=== PATIENT | male | born 1990 | race Caucasian/White ===

== ENCOUNTER 2017-08-21 19:05 | Inpatient (IN) | payer BC, OTHER ==
[~2017-08-21] VITALS: Ht 193 cm; Wt 70.0 kg
[2017-08-21 20:32] LABS: HEMATOCRIT 42.6 % (42-52); HEMOGLOBIN 15.4 g/dL (14.0-18.0); MEAN CELL VOLUME 87.5 fL (80-100); MEAN CORPUSCULAR HEMOGLOBIN 31.6 pg (25-34); MEAN CORPUSCULAR HGB CONC 36.2 g/dl (32-36); MEAN PLATELET VOLUME 10.6 fL (7.4-10.4); PLATELET COUNT 321 K/uL (130-400); RED CELL DISTRIBUTION WIDTH CV 12.6 % (11.5-14.5); RED CELL DISTRIBUTION WIDTH SD 40.6 fL (36.4-46.3); WHITE BLOOD COUNT 12.92 K/uL (4.8-10.8)
[2017-08-21 20:54] LABS: ALBUMIN 4.2 gm/dl (3.4-5.0); CALCIUM 9.1 mg/dl (8.5-10.1); CREATININE 0.79 mg/dl (0.60-1.40); POTASSIUM 3.6 mmol/L (3.5-5.1)
[2017-08-21 21:05] LABS: TOTAL PROTEIN 7.6 gm/dl (6.4-8.2)
[2017-08-21] MEDS ORDERED: NURSING VERBAL MED ORDER ONE (22:45)
[2017-08-21 22:54] VITALS: O2SAT 98
[2017-08-21] MEDS ORDERED: RISPERIDONE 1 MG TAB PO STA (23:11)
[2017-08-21] MEDS ORDERED: BISMUTH SUBSALICYLATE PER ML OMNICELL CHARGE PO PRN (23:15)
[2017-08-21] MEDS ORDERED: ACETAMINOPHEN 325 MG TAB PO PRN (23:15)
[2017-08-21] MEDS ORDERED: MAGNESIUM HYDROXIDE SUSP 30 ML UDC PO PRN (23:15)
[2017-08-21] MEDS ORDERED: SODIUM CHLORIDE 0.65% NA SOLN 45 ML (OCEAN) PRN (23:15)
[2017-08-21] MEDS ORDERED: ALUMINUM/MAGNESIUM SUSP 30 ML UDC PO PRN (23:15)
[2017-08-21] MEDS ORDERED: hydrOXYzine HCL 25 MG TAB PO PRN (23:15)
--- NOTE | 2017-08-21 23:33 | EMERGENCY ROOM VISIT NOTE ---
History Report prepared by Amira: Ivon Britt Under the Supervision of: Dr. Michael Telelz M.D. First contact with patient: 19:24 Chief Complaint: MENTAL HEALTH EVALUATION Stated Complaint: PSYCH DISTRESS, FEELS LIKE OUT OF REALITY History of Present Illness The patient is a 26 year old male who presents to the Emergency Room with complaints of an episodic panic attack 20 minutes [employer]. He was recently shopping at [employer] when he began experiencing an out of body sensation. He states that he felt dizzy. He reports that being in public is overwhelming. He has a history of anxiety and depression. He denies feeling this way with his anxiety in the past. He denies any cough or fevers. He denies any recent illness. He notes numbness in his hands, though is unsure when it began. Per mother, the patient has a possible history of Raynaud's disease, though the patient has refused to undergo the necessary testing to determine a proper diagnosis. He feels like the world is crumbling around him and that he does not belong in this world. He reports having apocalyptic dreams and dreams where he is chased by the police. He reports that he recently received two speeding tickets in the last month, though denies any history of arrest. He last had suicidal thoughts three days ago, though denies any history of harming himself. He denies any thoughts of harming others. He denies hearing any voices, though he states that he hears sounds that he does not expect to hear. He does not know how to explain the sounds he hears. He denies seeing things that other people don't see. Per mother, the patient was seen by a psychiatrist in 2013 for psychosis and diagnosed with thought disorder. The patient has been prescribed a medication that normally treats bipolar disorder, though the mother explained that the patient has not been diagnosed with bipolar disorder. Per mother, the patient is also on Neurontin for peripheral neuropathy. The patient is not currently taking any blood thinners. She explained that the patient does not like to take his medications to reach a therapeutic level and normally quits taking medication after a week of use. Source of History: patient, parent Onset: 20 minutes [employer] Position: other (global ) Quality: other (panic attack) Timing: other (episodic) Associated Symptoms: + numbness (in both hands), No fevers, No cough Note: He notes an out of body sensation. He denies any recent illness. He denies any thoughts of harming others. He denies hearing any voices. He notes hearing sounds. Review of Systems See HPI for pertinent positives & negatives. A total of 10 systems reviewed and were otherwise negative. Past Medical & Surgical Medical Problems: (1) Anxiety (2) Anxiety (3) Depression (4) Insomnia (5) Psychosis (6) Thought disorder Family History No pertinent family history Social History Smoking Status: Never Smoker Smokeless Tobacco Use: No Alcohol Use: occasionally (2 beers per month) Drug Use: none Marital Status: single Housing Status: lives with family Occupation Status: unemployed Current/Historical Medications Miscellaneous Medications None (Patient States No Home Meds) Allergies Coded Allergies: No Known Allergies (Unverified , 05/06/11) Physical Exam Vital Signs Date Time Temp Pulse Resp B/P (MAP) Pulse Ox O2 Delivery O2 Flow Rate FiO2 08/21/17 19:17 116 20 134/78 99 Room Air Physical Exam Constitutional: Vital signs reviewed. Eyes: Pupils are equal round reactive to light. Conjunctiva are noninjected. ENT: Pharynx is clear without erythema or exudate. Mucous membranes are moist. Neck supple without meningeal signs. Respiratory: Clear to auscultation bilaterally. Breath sounds are equal bilaterally. Cardiovascular: Regular rate and rhythm. No rubs or gallops. GI: Soft, nondistended and nontender. Bowel sounds are present. Musculoskeletal: No peripheral edema. No lower extremity tenderness. No discoloration to hands. Normal pulses. Integumentary: No cyanosis. Neurological: The patient is awake and alert. No focal deficits. Psychiatric: Depressed, flattened affect. Medical Decision & Procedures Laboratory Results 08/21/17 20:21 08/21/17 20:21 Test 08/21/17 19:30 08/21/17 20:21 Urine Color YELLOW Urine Appearance CLEAR (CLEAR) Urine pH 5.5 (4.5-7.5) Urine Specific [place] 1.012 (1.000-1.030) Urine Protein NEG (NEG) Urine Glucose (UA) NEG (NEG) Urine Ketones NEG (NEG) Urine Occult Blood NEG (NEG) Urine Nitrite NEG (NEG) Urine Bilirubin NEG (NEG) Urine Urobilinogen NEG (NEG) Urine Leukocyte Esterase NEG (NEG) Urine Opiates Screen NEG (NEG) Urine Methadone, Qualitative NEG (NEG) Urine Barbiturates NEG (NEG) Urine Phencyclidine (PCP) Level NEG (NEG) Ur Amphetamine/Methamphetamine NEG (NEG) MDMA (Ecstasy) Screen NEG (NEG) Urine Benzodiazepines Screen NEG (NEG) Urine Cocaine Metabolite NEG (NEG) Urine Marijuana (THC) NEG (NEG) Red Blood Count 4.87 M/uL (4.7-6.1) Mean Corpuscular Volume 87.5 fL (80-100) Mean Corpuscular Hemoglobin 31.6 pg (25-34) Mean Corpuscular Hemoglobin Concent 36.2 g/dl (32-36) RDW Standard Deviation 40.6 fL (36.4-46.3) RDW Coefficient of Variation 12.6 % (11.5-14.5) Mean Platelet Volume 10.6 fL (7.4-10.4) Anion Gap 8.0 mmol/L (3-11) Est Creatinine Clear Calc Drug Dose 142.8 ml/min Estimated GFR () 145.7 Estimated GFR (Non- 125.7 BUN/Creatinine Ratio 17.5 (10-20) Calcium Level 9.1 mg/dl (8.5-10.1) Total Bilirubin 0.4 mg/dl (0.2-1) Direct Bilirubin 0.1 mg/dl (0-0.2) Aspartate Amino Transf (AST/SGOT) 11 U/L (15-37) Alanine Aminotransferase (ALT/SGPT) 25 U/L (12-78) Alkaline Phosphatase 84 U/L (45-117) Total Protein 7.6 gm/dl (6.4-8.2) Albumin 4.2 gm/dl (3.4-5.0) Thyroid Stimulating Hormone (TSH) 0.861 uIu/ml (0.300-4.500) Salicylates Level < 1.7 mg/dl (2.8-20) Acetaminophen Level < 2 ug/ml (10-30) Ethyl Alcohol mg/dL < 3.0 mg/dl (0-3) Laboratory results as reviewed by me. ED Course 1927: The patient was evaluated in room A7. A complete history and physical exam was performed. 2219: The patient was accepted to [facility]. Medical Decision This is a 26-year-old male who presents for mental health evaluation. I did perform a limited focused review of portions of the patient's old chart on the electronic medical record. The patient has had no recent pertinent visits to this hospital. I did evaluate the patient as noted above. I did obtain history from the patient as well as his mother. The patient has a history of mental illness with severe depression and has suicidal thoughts recently. He is mostly noncompliant with his medication regimens. He has no physical complaints other than feeling lightheaded and having some discoloration and tingling to his hands. He does have a history of neuropathy and Raynaud's syndrome. His physical examination is unremarkable other than his affect. I did order and review the patient's blood work as noted in the electronic medical record. I did medically clear the patient. The patient was evaluated by 3 S. and admitted to the behavioral unit for inpatient psychiatric care. Medication Reconcilliation Current Medication List: was personally reviewed by me Blood Pressure Screening Patient's blood pressure: Elevated blood pressure Blood pressure disposition: Referred to PCP Impression Primary Impression: Suicidal ideation Additional Impression: Mood disorder Scribe Attestation The scribe's documentation has been prepared under my direct and personally reviewed by me in its entirety. I confirm that the note above accurately reflects all work, treatment, procedures, and medical decision making performed by me. Departure Information Dispostion Mental Health Acute Care ([facility]) Referrals No Doctor, Assigned (PCP) Patient Instructions [facility] Problem Qualifiers
[2017-08-21] MEDS: hydrOXYzine HCL 25 MG TAB PO PRN (23:37)
[2017-08-21 23:42] VITALS: BP 106/60; PULSE 91; TEMP 37; Ht 193 cm; Wt 70.0 kg
[2017-08-22] MEDS ORDERED: INFLUENZA ADMINISTRATION CHARGE ONE (00:30)
[2017-08-22] MEDS ORDERED: INFLUENZA VIRUS QUAD VACCINE 0.5 ML SYR IM. ONE (00:30)
[2017-08-22 06:46] VITALS: BP_SYST 116; BP_SYST 92; BP_DIAS 53; BP_DIAS 79; PULSE 68; PULSE 70; TEMP 36.3
[2017-08-22] MEDS: RISPERIDONE 1 MG TAB PO SCH ×2 (09:57→21:28)
--- NOTE | 2017-08-22 10:06 | Psych Management Progress Note ---
Psychiatry Miscellaneous Date of Service: Aug 22, 2017. Patient seen, MS assessed. Patient unable to rate mood at this time. Tall and quite thin, disheveled. He is thirsty and denied questions. I personally participated in the medical decision making outlined in the H&P by FRANCOIS Manjarrez and agree with the findings and plan.
[2017-08-22] MEDS ORDERED: ESCITALOPRAM OXALATE 10 MG TAB PO ONE (11:01)
--- NOTE | 2017-08-22 11:01 | Psychiatric History & Physical ---
History Date of Service Aug 22, 2017. Identifying Data iHram Owusu is a 26-year-old male admitted voluntarily on Aug 21, 2017 at 22:34 who presented to the emergency department after having a panic attack. He admits to suicidal thinking and severe depression. Information is gathered from the patient, the electronic medical record, and considered to be reliable. Chief Complaint "I had a panic attack, nervous breakdown yesterday.". History of Present Illness The patient is a 26-year-old gentleman whose past psych history includes a [place] in 2013 during a time when he had been abusing psychedelic drugs and got psychotic. He has not recently been in psychiatric treatment although indicates he may have seen Eric Lafleur for therapy some 6 months ago. He admits to feeling depressed for the last 1-2 years. He reports chronic anxiety in crowds and feeling like he can't operate in society. 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 Unfortunately he has been unable to find a job and in that setting, his mood has deteriorated. He now describes himself as "hermit like", living in his parents basement, never going out. He reports that he has dreams about the police being out to get him and he indeed did have 2 speeding tickets recently. Yesterday, apparently he had a panic attack after being out at [employer] shopping. He felt like he was having a "out of body experience, not really part of the scene, and decided to come to the emergency department. In trying to understand the mental illness that had him hospitalized in 2013, he says he described feeling "spaced out" secondary to the drugs, not reality based or rational, but he could not remember any specific examples of psychotic thinking or behaviors. Today he is clearly depressed, with some psychomotor retardation. He admits to passive suicidal thinking, saying that he believes he will just in his parents. He says that he sleeps at night but never feels rested during the day and reports very low energy. His appetite is low, he's lost an unspecified amount of weight with current BMI 18.8. He describes his anxiety as "slightly medium", worrying about his ability to function. He denies clear auditory or visual hallucinations but does describe some visual illusions, for example looking at something and initially misinterpreting it but looking at it a second time as it is really. He reports seeing clocks with repetitive numbers occasionally. He denies clear auditory experiences other than to say he has at least once her body describes as "whispers". He has no problems with anger currently but says when he was a little kid he did have problems with anger. He denies any self-injurious behaviors. He denies any specifically eating disordered behaviors but does say that he doesn't get the signal to his brain that he should eat. He denies any discrete episodes of euphoric mood, sleeplessness or pleasure seeking behaviors that would be congruent with a bipolar disorder. Past Psychiatric History Current OP Treatment: no current treatment Prior OP Treatment: therapist (Eric Lafleur) Prior Psych Hospitalizations: none (a farm in [place] in 2013) Access to a Gun: No Suicide Attempts: No Past Medication Trials Prozac-zombie, possibly a bipolar medication Past Medical/Surgical History History of Concussion/Seizure: No (1) none Allergies Allergies: Coded Allergies: No Known Allergies (Unverified , 05/06/11) Home Medications Miscellaneous Medications None (Patient States No Home Meds) Family History No pertinent family history History of Suicide: No History of Substance Abuse: Yes (mother is a recovering alcoholic) Psychiatric History: Yes (mother with anxiety) Alcohol Use Alcohol Use In Past 12 Months: No AUDIT Total Score: 0 Smoking Use Smoking Status: Never Smoker Substance History History of doing marijuana, mushrooms, LSD up to 2013, denies any current use. Did have an underage drinking charge Personal History [place] Childhood: Raised by both parents. Currently lives with them. He has 3 sisters, 1 brother , and is the third oldest. He is currently unemployed for the last 6-8 months. 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, emergency department physician, dessert maker Relationship History: never Children: none Legal History: none Psychological Trauma History: Other (watching her mother during her alcoholic days was traumatic for him) Review of Systems Constitutional: malaise Eyes: denies: no symptoms, as stated in HPI, eye pain, tearing, itching, redness, discharge, double vision, visual changes, blurred vision, photophobia, other ENT: denies: no symptoms reported, see HPI, ear pain, ear discharge, loss of hearing, tinnitus, nasal pain, nasal congestion, rhinorrhea, epistaxis, sore throat, stidor, throat swelling, mouth pain, mouth swelling, dental pain, gum swelling, other Cardiovascular: denies: no symptoms reported, see HPI, chest pain, chest tightness, chest pressure, diaphoresis, palpitations, syncope, other Respiratory: denies: no symptoms reported, see HPI, cough, orthopnea, short of breath, stridor, wheezing, sputum production, cyanosis, US, PND, other Gastrointestinal: diarrhea (last episode 5-7 days ago) Genitourinary - Male: reports: other (some difficulty initiating his stream) Musculoskeletal: other (pain in legs and hip rated 6-7 out of 10 today) Integumentary: denies no symptoms reported, denies see HPI, denies change in color, denies change in hair/nails, denies dryness, denies lesions, denies lumps , denies rash, denies other Neurologic: denies: no symptoms, see HPI, headache, numbness, paresthesias, pre -existing deficit, seizure, tingling, tremors, general weakness, tics, focal weakness, vertigo, lethargy, memory loss, dizziness, other Endocrine: denies: no symptoms, as stated in HPI, cold intolerance, heat intolerance, hair changes, goiter, polydipsia, polyuria, skin changes, other Hematologic / Lymphatic: denies: no symptoms, as stated in HPI, abnormal clotting, adenopathy, anemia, easy bleeding, easy bruising, gums bleeding, petechiae, other Examination Physical Examination exam performed by Dr. Tellez in the emergency Department has been reviewed and accepted as medical clearance for our unit Vital Signs Vital Signs Past 12 Hours Date Time Temp Pulse Resp B/P (MAP) Pulse Ox O2 Delivery O2 Flow Rate FiO2 08/22/17 06:46 36.3 68 14 92/53 70 116/79 08/21/17 23:42 37.0 91 16 106/60 08/21/17 22:54 87 20 129/74 98 Laboratory Results Last 24 Hours Test 08/21/17 19:30 08/21/17 20:21 Urine Color YELLOW Urine Appearance CLEAR Urine pH 5.5 Urine Specific [place] 1.012 Urine Protein NEG Urine Glucose (UA) NEG Urine Ketones NEG Urine Occult Blood NEG Urine Nitrite NEG Urine Bilirubin NEG Urine Urobilinogen NEG Urine Leukocyte Esterase NEG Urine Opiates Screen NEG Urine Methadone, Qualitative NEG Urine Barbiturates NEG Urine Phencyclidine (PCP) Level NEG Ur Amphetamine/Methamphetamine NEG MDMA (Ecstasy) Screen NEG Urine Benzodiazepines Screen NEG Urine Cocaine Metabolite NEG Urine Marijuana (THC) NEG White Blood Count 12.92 K/uL Red Blood Count 4.87 M/uL Hemoglobin 15.4 g/dL Hematocrit 42.6 % Mean Corpuscular Volume 87.5 fL Mean Corpuscular Hemoglobin 31.6 pg Mean Corpuscular Hemoglobin Concent 36.2 g/dl RDW Standard Deviation 40.6 fL RDW Coefficient of Variation 12.6 % Platelet Count 321 K/uL Mean Platelet Volume 10.6 fL Sodium Level 133 mmol/L Potassium Level 3.6 mmol/L Chloride Level 101 mmol/L Carbon Dioxide Level 24 mmol/L Anion Gap 8.0 mmol/L Blood Urea Nitrogen 14 mg/dl Creatinine 0.79 mg/dl Est Creatinine Clear Calc Drug Dose 142.8 ml/min Estimated GFR () 145.7 Estimated GFR (Non- 125.7 BUN/Creatinine Ratio 17.5 Random Glucose 103 mg/dl Calcium Level 9.1 mg/dl Total Bilirubin 0.4 mg/dl Direct Bilirubin 0.1 mg/dl Aspartate Amino Transf (AST/SGOT) 11 U/L Alanine Aminotransferase (ALT/SGPT) 25 U/L Alkaline Phosphatase 84 U/L Total Protein 7.6 gm/dl Albumin 4.2 gm/dl Thyroid Stimulating Hormone (TSH) 0.861 uIu/ml Salicylates Level < 1.7 mg/dl Acetaminophen Level < 2 ug/ml Ethyl Alcohol mg/dL < 3.0 mg/dl Mental Examination During interview pt is: alert and oriented, cooperative Appearance: disheveled Eye contact is: poor Motor behavior is: psychomotor agitation (restless leg) Speech: normal in rate, rhythm & volume Affect: mood congruent, depressed, flat Mood is: depressed Thought process: goal directed Thought content: reality based without delusions Suicidal thought are: present (passive in nature), Plan: denied, Intent: denied Homicidal thoughts are: denied Hallucinations: denies auditory, denies visual Cognition: attention grossly intact, language grossly intact Intelligence estimated to be: average Insight: impaired Judgement: impaired Impression / Recommendations Impression 26-year-old gentleman admitted voluntarily to our unit with severe depression and anxiety isolation. I do not get a clear sense of paranoia, denying that he is fearful of the police being out to get him. He does admit dreams about the police getting him but denies that he is acting on these in a paranoid state. He is clearly severely depressed with multiple vegetative symptoms. He is not a very good medication historian and can only recall having been on Prozac. At this point we will treat the depression with Lexapro 10 mg daily titrating as tolerated. For now we will continue Risperdal 1 mg twice a day in the event his thoughts are distorted in his depression but can discontinue this if this does not seem to be necessary. He will need assistance to get out of bed, eat 3 meals a day and dislodge himself from his self-imposed isolation. We will need to get supplemental information from his mother, establish psychiatric outpatient care. At this time, the patient requires inpatient mental health treatment due to his clear decompensation, inability to function outside of a structured environment. Inventory Assets Strengths: Willingness to engage in treatment Needs: To identify positive coping strategies Risk Factors Assessment Male: Yes : Yes /single/: Yes Higher / Fall in social status: Yes Access to guns: No Health problems: No Mental Health Diagnoses: Yes Substance use disorders: Yes (history of) Previous attempt: No Previous psychiatric stay: Yes Smoker: No Protective Factors Assessment : No Responsible for young children: No Employed: No Stable relationships: No Supportive family: Yes Recommendations (1) Major depressive disorder, recurrent episode, severe 08/22 - Start Lexapro 10 mg daily titrating as tolerated. Risks, benefits, alternatives reviewed and accepted including black box warning for worsening depression - It is not clear that his thoughts about the police are paranoid. Nonetheless we will continue on Risperdal 1 mg twice a day to help maintain reality based thinking as he did have an out of body experience yesterday but may be able to discontinue this if no clear evidence of psychotic component - The patient will need assistance with ADLs and to remain out of bed - Encourage participation in group and individual counseling - Every 15 minute checks for safety - The patient will need psychiatric aftercare - Obtain supplemental information from family - Obtain records from hospitalization in 2013 - Will order Vit D level in view of having been in the basement for months Dr. Tessa Graf has personally been involved in the review of the above case and the development of these recommendations. CPT Code Initial Hospital Care: [id number]
[2017-08-22] MEDS ORDERED: IBUPROFEN 600 MG TAB PO PRN (11:15)
[2017-08-23 06:56] VITALS: BP_SYST 102; BP_SYST 108; BP_DIAS 66; BP_DIAS 75; PULSE 102; PULSE 84; TEMP 36.5
[2017-08-23] MEDS: ESCITALOPRAM OXALATE 10 MG TAB PO SCH (08:21)
[2017-08-23] MEDS: RISPERIDONE 1 MG TAB PO SCH ×2 (08:21→21:11)
--- NOTE | 2017-08-23 08:50 | Psychiatric Progress Notes ---
Progress Note Date of Service Aug 23, 2017. Interval History Hiram Owusu is a 26-year-old male admitted voluntarily on Aug 21, 2017 at 22:34 who presented to the emergency department after having a panic attack and reporting severe depression and suicidal thoughts. He was started on escitalopram and risperidone here. Chief Complaint "Much better I would say". Subjective Patient was seen & assessed interval progress reviewed with Treatment Team. Staff report the patient submitted a 72 hour notice requesting to withdraw from treatment this morning. He is talking about going [facility] to live with an aunt and take online courses. Staff spoke to his mother who is very worried about him, said he signed out of a treatment facility in [place] and flew somewhere and they had to go and get him. He has been isolating in their basement for the past few months, has not been able to work or care for himself , has not been eating and has lost weight. He has a meeting scheduled with his parents this afternoon. Records reviewed from neuropsychological testing performed at [facility] in [place] in [address] Yariel Molina. The patient was 20 at the time, a second semester communications [employer], and was referred by the [facility] office of disability services for testing for ADHD and eligibility for accommodations. He reported difficulty paying attention, had to force himself to go to classes, and had failed out his first semester as he was not attending classes. He struggled in high school and felt he was unable to learn as quickly as others. His GPA was 1.7, he earned A's and B's in elementary school, and C's and D's in high school. He reported that his mother was an alcoholic, unremarkable developmental history, but problems with defiance and impulsiveness as a child. He had been treated with sertraline by Ragini Cedeno in the past, but said it made him feel "like a zombie." He reported depressive symptoms for 4 years, and was not currently in treatment. He reported anxiety around females, and admitted to abusing alcohol and marijuana. He failed a test indicator of motivation, indicating that he was not putting forth adequate effort during testing. His answers were inconsistent, and there was indication that he may be exaggerating complaints and problems. IQ was 86, and the low average range. His self-description noted peculiar thinking and experience, social isolation with few interpersonal relationships, and limited social skills. His thought process was marked by confusion, distractibility, and slowed her disrupted thinking, but he did not endorse active psychotic symptoms. It appeared that his substance abuse was negatively affecting his life and symptoms, and he described a personality style noted by a marked need for stimulation and excitement, leading to reckless behavior and irresponsibility. He described significant suspiciousness and hostility in his relationships with others, and was quick to believe he is being treated in equitably and holds grudges, causing strain working relationships. The conclusion was that although testing supported a diagnosis of ADHD, inattentive type, and also revealed marked psychological distress characterized by depression, substance abuse, interpersonal difficulties, and deficits in cognitive functioning; however, these findings may be an overestimate of his psychopathology given data indicating symptom exaggeration. He was given provisional diagnoses of ADHD, as well as depression NOS rule out dysthymic disorder, and cannabis abuse. Records from [facility] in [place] in 2013 were also reviewed ( admitted 12/15/2013, discharged 01/26/2014). His psychiatric assessment was performed by Dr. Price Rivera, and noted that he had attempted college at [employer] several times, but had withdrawal. He admitted to regular marijuana use starting in 10th grade, progressing to mushrooms and LSD the following year, and alcohol. He reported depressive symptoms, but denied symptoms of mynor, anxiety, and over hallucinations other than when on hallucinogens. He was diagnosed with cannabis and hallucinogen abuse and rule out schizophreniform disorder he reported that his sister had been labeled as "psychotic." The physician suspected that his inattentiveness was due to underlying psychosis, and included paranoid schizophrenia, schizoaffective disorder, substance- induced psychosis, and schizotypical personality disorder in the differential. He indicated that he was not really interested in treatment, and only went because his parents made him. His parents did not want him to return home. He did not want to take medications. Records indicated that diagnostically, he was a puzzle, although he appeared to have negative symptoms of schizophrenia. He was referred for neuropsychological testing. He had weekly phone sessions with his parents, but was sarcastic, and struggled to identify any treatment goals or make progress. He tended to downplay his symptoms, had poor participation in treatment, and ultimately requested to leave. He showed little insight, and refused medications. He was discharged with a diagnosis of cannabis and hallucinogen abuse, and rule out schizophreniform disorder. Per records, he was transferred to [facility], a residential treatment facility/working community in [place]. There is one note from 04/26/[address] David Guzman, and evaluation as affected probe and in the siblings study. He was reluctant to participate in some aspects of this study. At that time, he had recently been released from [facility], and was living with a maternal aunt and her 2 children in [place], and taking online classes. Due to his ongoing odd thinking that episodically rises past the threshold for psychosis together with negative symptoms and a failure to function, it was recommended that he work with a psychotherapist and abstain from substance use. Today on my assessment, he was seen with DANIEL Palacios. He states he is feeling much better, mood is "better because of the medication, but would be even better if I could exercise more." Rates his mood a 7-8 out of 10, "I feel dairy helper." He says he is going to groups and slept well. Appetite "pretty stable, " but admits not eating, "my stomach doesn't send me signals, probably a genetic thing, but I'll eat because I have to." He denies side effects to his medications. He has been trying to "be social, explain my emotions to other people," which he says is difficult for him as he is "not really an emotional person." He denies SI, saying he "just didn't want to be alive, I didn't attempt anything." He is hopeful that he will be accepted to an online college he applied to, and says this is "why I was gonna try to scurry out of here." He admits to ongoing auditory hallucinations, saying he "hears things and interprets them...I don't know how to explain it." He hears "sounds" and isn't sure if they are voices, but "I just interpret them differently than what's actually happening." He gives the example of a wheelchair rolling down the hallway, and thinking it was two dogs. He is not sure if he will continue to live with parents here or will move out to [place] where the college he applied to is. When asked about submitting his 72 hour notice, he appears confused, saying he thinks he would do better with "individualized one on one treatment," then saying he thinks he needs to stay for 5 or 6 more days. We reviewed the goals of treatment here, and things that he can do to work towards discharge, including taking care of his ADLs daily, talking with his parents about ways to be successful when he returns home, arranging aftercare, and working on coping skills and a safety plan. He admits he has not showered or put on clean clothes since admission 2 days ago, and says because he doesn't know where the shower is. Sleep Information Total Hours of Sleep: 6.75 Meal Information Percent of Breakfast Consumed: 100 Percent of Lunch Consumed: 90 Percent of Dinner Consumed: 100 Mental Status Exam During interview pt is: alert and oriented, guarded Appearance: disheveled, other (thin, unkempt, unshaven, limited hygiene and grooming) Eye contact is: poor Motor behavior is: no abnormal motor movements Speech: normal in rate, rhythm & volume (minimal, monotone) Affect: depressed, flat, other (incongruent with stated mood) Mood is: other ("better") Thought process: goal directed (illogical at times, contradictory statements) Thought content: reality based without delusions Suicidal thought are: denied, Plan: denied, Intent: denied Homicidal thoughts are: denied Hallucinations: auditory (reports hearing sounds that may represent hallucinations versus unusual processing of auditory cues), denies visual Cognition: attention grossly intact, language grossly intact Intelligence estimated to be: below average Insight: impaired Judgement: impaired Medication Trials Sertraline for depression in high school - "like a zombie" Impression 26-year-old gentleman admitted voluntarily to our unit with severe depression and anxiety isolation. I do not get a clear sense of paranoia, denying that he is fearful of the police being out to get him. He does admit dreams about the police getting him but denies that he is acting on these in a paranoid state. He is clearly severely depressed with multiple vegetative symptoms. He is not a very good medication historian and can only recall having been on Prozac. At this point we will treat the depression with Lexapro 10 mg daily titrating as tolerated. For now we will continue Risperdal 1 mg twice a day in the event his thoughts are distorted in his depression but can discontinue this if this does not seem to be necessary. He will need assistance to get out of bed, eat 3 meals a day and dislodge himself from his self-imposed isolation. We will need to get supplemental information from his mother, establish psychiatric outpatient care. At this time, the patient requires inpatient mental health treatment due to his clear decompensation, inability to function outside of a structured environment. Plan (1) Major depressive disorder, recurrent episode, severe 08/22 - Start Lexapro 10 mg daily titrating as tolerated. Risks, benefits, alternatives reviewed and accepted including black box warning for worsening depression - It is not clear that his thoughts about the police are paranoid. Nonetheless we will continue on Risperdal 1 mg twice a day to help maintain reality based thinking as he did have an out of body experience yesterday but may be able to discontinue this if no clear evidence of psychotic component - The patient will need assistance with ADLs and to remain out of bed - Encourage participation in group and individual counseling - Every 15 minute checks for safety - The patient will need psychiatric aftercare - Obtain supplemental information from family - Obtain records from hospitalization in 2013 - Will order Vit D level in view of having been in the basement for months 08/23 - Records reviewed from past neuropsychological testing and inpatient treatment in [place] in 2013, where he was given diagnoses of cannabis and hallucinogen abuse, and rule out schizophreniform disorder. His history is complex and his symptoms and diagnosis remain unclear. - Continue escitalopram 10 mg daily and risperidone 1 mg twice a day. - Fasting labs obtained today for baseline on an atypical antipsychotic-all values within normal limits - Family meeting with parents this afternoon. Patient has submitted a 72 hour notice requesting to withdraw from treatment, and we spent some time today discussing treatment recommendations, and that I do not feel he is ready for discharge yet, that we would like to continue to adjust his medications, involve his family, work on healthy coping skills and discharge safety plan, and referred him for outpatient care prior to considering discharge. - Vitamin D low at 22.2, will start vitamin D supplementation, and he will need to follow-up with his PCP. Discharge / Aftercare Planning Primary Care Physician: Name: Dr Lou Therapist: Name: None Ground Crew Chief: Name: None Visit Code E&M Code: 59311 Inventory Assets Strengths: Willingness to engage in treatment Needs: To identify positive coping strategies Risk Factors Assessment Male: Yes : Yes /single/: Yes Higher / Fall in social status: Yes Health problems: No Mental Health Diagnoses: Yes Substance use disorders: Yes (history of) Previous attempt: No Previous psychiatric stay: Yes Smoker: No Protective Factors Assessment : No Responsible for young children: No Employed: No Stable relationships: No Supportive family: Yes Data Vital Signs Last 24 Hrs: Date Time Temp Pulse Resp B/P (MAP) Pulse Ox O2 Delivery O2 Flow Rate FiO2 08/23/17 06:56 36.5 84 16 102/66 102 108/75 Meds Administered Last 24 Hrs: Meds Administered (Past 24Hrs) Medications (Trade) Dose Ordered Sig/Giovanni Route Start Time Stop Time Status Last Admin Dose Admin Risperidone (Risperdal Tab) 1 mg BID PO 08/22/17 09:00 09/21/17 08:59 08/22/17 21:28 1 MG Risperidone (Risperdal Tab) 1 mg NOW STAT PO 08/21/17 23:11 08/21/17 23:12 DC 08/21/17 23:38 1 MG Hydroxyzine HCl (Vistaril Tab) 50 mg HSZ PRN PO 08/21/17 23:15 09/20/17 23:14 08/21/17 23:37 50 MG Escitalopram Oxalate (Lexapro Tab) 10 mg 1101 ONCE PO 08/22/17 11:01 08/22/17 11:24 DC 08/22/17 11:34 10 MG Lab Results Last 24 Hrs: Last 24 Hours Test 08/23/17 07:20 Fasting Glucose 92 mg/dl Triglycerides Level 87 mg/dl Cholesterol Level 160 mg/dl HDL Cholesterol 59 mg/dl LDL Cholesterol, Calculated 84 mg/dl VLDL Cholesterol, Calculated 17 mg/dl Cholesterol/HDL Ratio 2.7 25-Hydroxy Vitamin D Total 22.2 ng/ml Problem Qualifiers (1) Major depressive disorder, recurrent episode, severe: Psychotic features: with psychotic features Qualified Codes: F33.3 - Major depressive disorder, recurrent, severe with psychotic symptoms
[2017-08-24 06:50] VITALS: BP_SYST 104; BP_SYST 116; BP_DIAS 70; BP_DIAS 76; PULSE 66; PULSE 96; TEMP 36.5
[2017-08-24] MEDS: ESCITALOPRAM OXALATE 10 MG TAB PO SCH (09:19)
[2017-08-24] MEDS: CHOLECALCIFEROL 400 INTER.UNIT TAB PO SCH (09:19)
[2017-08-24] MEDS: RISPERIDONE 1 MG TAB PO SCH ×2 (09:19→21:20)
--- NOTE | 2017-08-24 11:15 | Psychiatric Progress Notes ---
Progress Note Date of Service Aug 24, 2017. Interval History Hiram Owusu is a 26-year-old male admitted voluntarily on Aug 21, 2017 at 22:34 who presented to the emergency department after having a panic attack and reporting severe depression and suicidal thoughts. He was started on escitalopram and risperidone here. Chief Complaint "Much better". Subjective Patient was seen & assessed interval progress reviewed with Nursing. Staff reports minimal participation in daily programming. Pt had meeting with parents yesterday and staff reports patient was angry but did agree to aftercare. Pt was seen today to assess progress since admission. Pt states he feels he is doing better. Reports he feels "mentally alert and in better overall health". Pt states he feels as though medications have been helpful for him. He does report ongoing fatigue and mild nausea in the mornings, but is unsure if that is related to the medications. Pt states he has never had much of an appetite, but has been eating well here on the unit. He reports decreased eating at home as it requires more work to shop for and prepare meals. Pt states the meeting with his parents went well yesterday and he agreed to outpatient care after discharge. Pt denies SI and self-harm urges at this encounter. He does report, "sometimes I feel a bit paranoid, but I also have a habit of interpreting things wrong." Pt signed a 72-hour notice on 08/23 at 0845. Review of Systems Psych: denies symptoms other than stated above Constitutional: denied Cardiovascular: denied GI: denies nausea so far this morning Neurologic: denied Remainder of 10 body systems also reviewed and denied other than noted above. Sleep Information Total Hours of Sleep: 3.50 Meal Information Percent of Breakfast Consumed: 70 Percent of Lunch Consumed: 100 Percent of Dinner Consumed: 100 Mental Status Exam During interview pt is: alert and oriented, guarded Appearance: appropriately dressed, disheveled (unkempt, minimal grooming), other (rather thin) Eye contact is: fair Motor behavior is: steady gait & station, no abnormal motor movements Speech: normal in rate, rhythm & volume Affect: flat, other (incongruent with reported mood) Mood is: other ("much better") Thought process: goal directed (illogical at times, contradictory statements) Thought content: reality based without delusions Suicidal thought are: denied, Plan: denied, Intent: denied Homicidal thoughts are: denied Hallucinations: auditory ("nothing significant", states he can "misintrepret things"), denies visual Cognition: memory grossly intact, attention grossly intact, language grossly intact Intelligence estimated to be: below average Insight: impaired Judgement: impaired Medication Trials Sertraline for depression in high school - "like a zombie Impression Pt reports improvement in mood symptoms but remains flat and incongruent to stated mood. Pt reports being mentally alert on Lexapro 10mg and Risperdal 1mg BID. Ongoing fatigue, but denies side effects otherwise. pan tank worker was able to reach patient's mother and discuss signed 72-hour notice with her as patient likely does not meet criteria for a 302 commitment. Pt has been going to group programming, but participates minimally. Patient requires inpatient mental health treatment due to decompensation and inability to function outside of a structured environment. Plan (1) Major depressive disorder, recurrent episode, severe 08/22 - Start Lexapro 10 mg daily titrating as tolerated. Risks, benefits, alternatives reviewed and accepted including black box warning for worsening depression - It is not clear that his thoughts about the police are paranoid. Nonetheless we will continue on Risperdal 1 mg twice a day to help maintain reality based thinking as he did have an out of body experience yesterday but may be able to discontinue this if no clear evidence of psychotic component - The patient will need assistance with ADLs and to remain out of bed - Encourage participation in group and individual counseling - Every 15 minute checks for safety - The patient will need psychiatric aftercare - Obtain supplemental information from family - Obtain records from hospitalization in 2013 - Will order Vit D level in view of having been in the basement for months 08/23 - Records reviewed from past neuropsychological testing and inpatient treatment in [place] in 2013, where he was given diagnoses of cannabis and hallucinogen abuse, and rule out schizophreniform disorder. His history is complex and his symptoms and diagnosis remain unclear. - Continue escitalopram 10 mg daily and risperidone 1 mg twice a day. - Fasting labs obtained today for baseline on an atypical antipsychotic-all values within normal limits - Family meeting with parents this afternoon. Patient has submitted a 72 hour notice requesting to withdraw from treatment, and we spent some time today discussing treatment recommendations, and that I do not feel he is ready for discharge yet, that we would like to continue to adjust his medications, involve his family, work on healthy coping skills and discharge safety plan, and referred him for outpatient care prior to considering discharge. - Vitamin D low at 22.2, will start vitamin D supplementation, and he will need to follow-up with his PCP. 08/24 - Continue Lexapro 10mg and Risperdal 1mg BID. - Discussed with patient option to rescind his 72-hour notice, which he understood. Unsure if he will do this later today after additional consideration. - pan tank worker spoke with patient's mother over the phone to gain collateral information. Inability to 302 based on lacking appropriate criteria was discussed and mother reportedly understood. Will use remaining hospitalization to attempt provide additional outpatient supports and explore options for case management, psych rehab, etc. - Continue to encourage participation in group programming and disrupt isolative behaviors. Discharge / Aftercare Planning Primary Care Physician: Name: Dr Lou Therapist: Name: None [employer] Consultant: Name: None Visit Code E&M Code: 97447 Inventory Assets Strengths: Willingness to engage in treatment Needs: To identify positive coping strategies Risk Factors Assessment Male: Yes : Yes /single/: Yes Higher / Fall in social status: Yes Health problems: No Mental Health Diagnoses: Yes Substance use disorders: Yes (history of) Previous attempt: No Previous psychiatric stay: Yes Smoker: No Protective Factors Assessment : No Responsible for young children: No Employed: No Stable relationships: No Supportive family: Yes Data Vital Signs Last 24 Hrs: Date Time Temp Pulse Resp B/P (MAP) Pulse Ox O2 Delivery O2 Flow Rate FiO2 08/24/17 06:50 36.5 66 16 104/70 96 116/76 Meds Administered Last 24 Hrs: Meds Administered (Past 24Hrs) Medications (Trade) Dose Ordered Sig/Giovanni Route Start Time Stop Time Status Last Admin Dose Admin Escitalopram Oxalate (Lexapro Tab) 10 mg QAM PO 08/23/17 09:00 09/22/17 08:59 08/24/17 09:19 10 MG Escitalopram Oxalate (Lexapro Tab) 10 mg 1101 ONCE PO 08/22/17 11:01 08/22/17 11:24 DC 08/22/17 11:34 10 MG Cholecalciferol (Vitamin D Tab) 800 inter.unit QAM PO 08/24/17 09:00 09/23/17 08:59 08/24/17 09:19 800 INTER.UNIT Problem Qualifiers (1) Major depressive disorder, recurrent episode, severe: Psychotic features: with psychotic features Qualified Codes: F33.3 - Major depressive disorder, recurrent, severe with psychotic symptoms
[2017-08-24] MEDS: hydrOXYzine HCL 25 MG TAB PO PRN (21:20)
[2017-08-25 07:07] VITALS: BP_SYST 110; BP_SYST 125; BP_DIAS 71; BP_DIAS 79; PULSE 79; PULSE 85; TEMP 36.4
[2017-08-25] MEDS: ESCITALOPRAM OXALATE 10 MG TAB PO SCH (07:42)
[2017-08-25] MEDS: RISPERIDONE 1 MG TAB PO SCH (07:43)
[2017-08-25] MEDS: CHOLECALCIFEROL 400 INTER.UNIT TAB PO SCH (07:43)
[2017-08-25] MEDS ORDERED: VTMD400 PO (10:15)
[2017-08-25] MEDS ORDERED: ATR25 PO (10:15)
[2017-08-25] MEDS ORDERED: RSP1 PO (10:15)
[2017-08-25] MEDS ORDERED: LXP10 PO (10:15)
--- NOTE | 2017-08-25 10:42 | Discharge Instructions ---
Discharge Information Report Includes Report will include the: Discharge Instructions & Summary Admission Admission Date / Time: Aug 21, 2017 at 22:34 Reason for Admission: Psychosis Nos Discharge Discharge Diagnosis / Problem: major depression, psychosis not otherwise specified Condition at Discharge: Fair Discharge Goals Goal(s): Improve function, Improve disease control, Learn about illness, Therapeutic intervention Activity Recommendations Activity Limitations: per Instructions/Follow-up section . Instructions / Follow-Up Instructions / Follow-Up . SPECIAL CARE INSTRUCTIONS: 1. Follow through with your scheduled aftercare appointments. If unable to keep an appointment, please call to reschedule. 2. Take your medication only as prescribed. Medication should not be changed or stopped without the approval of your doctor. In the event of worsening symptoms or concerns about side effects, contact your doctor immediately. 3. Utilize new healthy coping skills, anger management skills, and stress management skills learned during your hospitalization. Journal feelings and process them with a support person. Identify stressors or situations that may result in relapse, deterioration or inappropriate behaviors and develop a plan to deal with those issues. 4. If your coping skills are ineffective and you are in crisis, contact your outpatient providers for direction. If unable to reach your providers, please call the CAN HELP LINE AT or go to the closest Emergency Room. 5. Avoid alcohol and un-prescribed drugs. 6. You have been provided with the Mental Health Advance Directives Pamphlet for your review. AFTERCARE APPOINTMENTS: * Please call your insurance company prior to your scheduled appointment to confirm your aftercare providers are covered. Take your insurance information to your appointments. . Discharge / Aftercare Planning Primary Care Physician: Name: Dr Jason Lou Date of Appointment: Aug 26, 2017 Time of Appointment: 10:30 a.m. Appointment Notes: as needed Psychiatrist: Name: KATI--initial intake with Asha Lal for psych and therapist Date of Appointment: Aug 30, 2017 Time of Appointment: 9:00am Appointment Notes: on 3rd floor Therapist: Name Of Therapist: KATI (see above) Sample Finisher: Name: [facility] Appointment Notes: will follow up with pt Home Health Services: Home Health Services: none . Follow-Up Care Plan for Follow-Up Care: See above. Current Hospital Diet Patient's current hospital diet: Regular Diet Discharge Diet Recommended Diet: Regular Diet Procedures Procedures Performed: No Pending Studies Pending Studies at Discharge: No Medical Emergencies . Who to Call and When: Medical Emergencies: For questions or emergencies related to your hospital stay, please contact the Inpatient Behavioral Health Unit at [phone]. A welder railcar mechanic is on-call 15/02 for the Behavioral Health Unit for emergencies At any time you feel your situation is an emergency, you may also call 911 immediately. . Non-Emergent Contact Non-Emergency issues call your: Primary Care Provider, Psychiatrist, Therapist , Sample Finisher Advance Directives Existing Advance Directive: No Do You Have an Existing Mental: No Existing Living Will: No Existing Power of Phonograph Needle Tip Maker: No Advance Directives Info Given: To Pt/S.O. Advance Directives Reason: Declines as Mental Health Visit. Discharge Summary Admission HPI Per the Admitting provider: The patient is a 26-year-old gentleman whose past psych history includes [place] in 2013 during a time when he had been abusing psychedelic drugs and got psychotic. He has not recently been in psychiatric treatment although indicates he may have seen Eric Lafleur for therapy some 6 months ago. He admits to feeling depressed for the last 1-2 years. He reports chronic anxiety in crowds and feeling like he can't operate in society. 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 Unfortunately he has been unable to find a job and in that setting, his mood has deteriorated. He now describes himself as "hermit like", living in his parents basement, never going out. He reports that he has dreams about the police being out to get him and he indeed did have 2 speeding tickets recently. Yesterday, apparently he had a panic attack after being out at [employer]. He felt like he was having a "out of body experience, not really part of the scene, and decided to come to the emergency department. In trying to understand the mental illness that had him hospitalized in 2013, he says he described feeling "spaced out" secondary to the drugs, not reality based or rational, but he could not remember any specific examples of psychotic thinking or behaviors. Today he is clearly depressed, with some psychomotor retardation. He admits to passive suicidal thinking, saying that he believes he will just in his parents. He says that he sleeps at night but never feels rested during the day and reports very low energy. His appetite is low, he's lost an unspecified amount of weight with current BMI 18.8. He describes his anxiety as "slightly medium", worrying about his ability to function. He denies clear auditory or visual hallucinations but does describe some visual illusions, for example looking at something and initially misinterpreting it but looking at it a second time as it is really. He reports seeing clocks with repetitive numbers occasionally. He denies clear auditory experiences other than to say he has at least once her body describes as "whispers". He has no problems with anger currently but says when he was a little kid he did have problems with anger. He denies any self-injurious behaviors. He denies any specifically eating disordered behaviors but does say that he doesn't get the signal to his brain that he should eat. He denies any discrete episodes of euphoric mood, sleeplessness or pleasure seeking behaviors that would be congruent with a bipolar disorder. Admission Exam Per the Admitting provider: Please see admission H&P. Consultations None. Hospital Course (1) Major depressive disorder, recurrent episode, severe 08/22 - Start Lexapro 10 mg daily titrating as tolerated. Risks, benefits, alternatives reviewed and accepted including black box warning for worsening depression - It is not clear that his thoughts about the police are paranoid. Nonetheless we will continue on Risperdal 1 mg twice a day to help maintain reality based thinking as he did have an out of body experience yesterday but may be able to discontinue this if no clear evidence of psychotic component - The patient will need assistance with ADLs and to remain out of bed - Encourage participation in group and individual counseling - Every 15 minute checks for safety - The patient will need psychiatric aftercare - Obtain supplemental information from family - Obtain records from hospitalization in 2013 - Will order Vit D level in view of having been in the basement for months 08/23 - Records reviewed from past neuropsychological testing and inpatient treatment in [place] in 2013, where he was given diagnoses of cannabis and hallucinogen abuse, and rule out schizophreniform disorder. His history is complex and his symptoms and diagnosis remain unclear. - Continue escitalopram 10 mg daily and risperidone 1 mg twice a day. - Fasting labs obtained today for baseline on an atypical antipsychotic-all values within normal limits - Family meeting with parents this afternoon. Patient has submitted a 72 hour notice requesting to withdraw from treatment, and we spent some time today discussing treatment recommendations, and that I do not feel he is ready for discharge yet, that we would like to continue to adjust his medications, involve his family, work on healthy coping skills and discharge safety plan, and referred him for outpatient care prior to considering discharge. 08/24 - Continue Lexapro 10mg and Risperdal 1mg BID. - Discussed with patient option to rescind his 72-hour notice, which he understood. Unsure if he will do this later today after additional consideration. - machine shop worker spoke with patient's mother over the phone to gain collateral information. Inability to 302 based on lacking appropriate criteria was discussed and mother reportedly understood. Will use remaining hospitalization to attempt provide additional outpatient supports and explore options for case management, psych rehab, etc. - Continue to encourage participation in group programming and disrupt isolative behaviors. 08/25 - Continue escitalopram 10 mg daily. - Patient is denying thoughts of harming himself or others, is attending to his ADLs, participating in treatment to some degree, and states willingness to take medications and follow up with outpatient providers. He has submitted a 72 hour notice which expires early tomorrow morning, and is not interested in signing and for further treatment, so will be discharged today and his parents care. - He has been referred for outpatient therapy and psychiatric follow-up at [facility] with an intake in 5 days, and was referred for case management through the [facility] so that he can be set up with psych rehabilitation and/or clubhouse. He was likely benefit from additional supports and structure in the community. (2) Psychosis 08/25 - reviewed past records including neuropsychological testing, and the patient has long-standing complex symptomatology which defies standard classification. There was a concern for schizophreniform disorder or a prodrome versus a substance-induced psychosis, and at the time of psych testing he was given provisional diagnoses of ADHD, depression NOS, rule out dysthymic disorder, and cannabis abuse. He was not in treatment for several years, but per his parents reports and his own during this hospitalization has displayed odd perceptions and patterns of thinking, and feels that risperidone has been helpful in clarifying his thinking, so we will continue it for now. This will require ongoing monitoring and diagnostic consideration. He denies that he's been using hallucinogens recently. (3) Vitamin D deficiency - Vitamin D low at 22.2, will start vitamin D supplementation, and he will need to follow-up with his PCP. Risk Factors Assessment Male: Yes : Yes /single/: Yes Higher / Fall in social status: Yes Health problems: No Mental Health Diagnoses: Yes Substance use disorders: Yes (history of) Previous attempt: No Family history of suicide: No Previous psychiatric stay: Yes Hopelessness: No Smoker: No Protective Factors Assessment Hinduism beliefs: No : No Responsible for young children: No Employed: No Stable relationships: No Supportive family: Yes Good rapport with provider: No Absence of risk factors above: Yes (risk factors were mitigated by admission to the inpatient unit, he submitted medications to target mood and psychotic symptoms, educating the patient about his diagnoses and the recommended treatment, involving him in groups and therapy, working on healthy coping skills and his discharge safety plan, involving his parents and a family meeting , referring him for outpatient mental health treatment including a psychiatrist , therapist, and case management assistant, recommending increased structure and support ( such as psych rehabilitation or clubhouse). The patient has improved with medications, has consistently denied thoughts of harming himself or others, is performing ADLs independently, and has requested discharge. He submitted a 72 hour notice which expires early tomorrow morning, and does not meet any criteria for involuntary commitment. As he is no longer at acute risk of harm to himself or others, he can be discharged and managed as an outpatient at this time.) Day of Discharge Assessment Hospital course: On admission, the patient was started on escitalopram to target depression and risperidone to target psychotic symptoms. He tolerated these medications well, and felt they were helpful. Vitamin D level was checked and was low, so he was started on supplementation. His previous records from neuropsychological testing and residential treatment in [place] several years ago were received and reviewed. The neuropsych testing results summarized: patient had failed two attempts to attend [facility], and had been referred by the [facility] office of disability services for ADHD testing and eligibility for accommodations. He reported difficulty paying attention,had to force himself to go to classes, and had failed out his first semester as he was not attending classes. He struggled in high school and felt he was unable to learn as quickly as others. His GPA was 1.7, he earned A's and B's in elementary school , and C's and D's in high school. He reported that his mother was an alcoholic , unremarkable developmental history, but problems with defiance and impulsiveness as a child. He had been treated with sertraline by Ragini Cedeno in the past, but said it made him feel "like a zombie." He reported depressive symptoms for 4 years, and was not currently in treatment. He reported anxiety around females, and admitted to abusing alcohol and marijuana. He failed a test indicator of motivation, indicating that he was not putting forth adequate effort during testing. His answers were inconsistent, and there was indication that he may be exaggerating complaints and problems. IQ was 86, and the low average range. His self-description noted peculiar thinking and experience, social isolation with few interpersonal relationships, and limited social skills. His thought process was marked by confusion, distractibility, and slowed her disrupted thinking, but he did not endorse active psychotic symptoms. It appeared that his substance abuse was negatively affecting his life and symptoms, and he described a personality style noted by a marked need for stimulation and excitement, leading to reckless behavior and irresponsibility. He described significant suspiciousness and hostility in his relationships with others, and was quick to believe he is being treated in equitably and holds grudges, causing strain working relationships. The conclusion was that although testing supported a diagnosis of ADHD, inattentive type, and also revealed marked psychological distress characterized by depression, substance abuse, interpersonal difficulties, and deficits in cognitive functioning; however, these findings may be an overestimate of his psychopathology given data indicating symptom exaggeration. He was given provisional diagnoses of ADHD, as well as depression NOS rule out dysthymic disorder, and cannabis abuse. Records from [facility] in [place] in 2013 were also reviewed ( admitted 12/15/2013, discharged 01/26/2014). His psychiatric assessment was performed by Dr. Price Rivera, and noted that he had attempted college at [employer] several times, but had withdrawal. He admitted to regular marijuana use starting in 10th grade, progressing to mushrooms and LSD the following year, and alcohol. He reported depressive symptoms, but denied symptoms of mynor, anxiety, and over hallucinations other than when on hallucinogens. He was diagnosed with cannabis and hallucinogen abuse and rule out schizophreniform disorder he reported that his sister had been labeled as "psychotic." The physician suspected that his inattentiveness was due to underlying psychosis, and included paranoid schizophrenia, schizoaffective disorder, substance- induced psychosis, and schizotypical personality disorder in the differential. He indicated that he was not really interested in treatment, and only went because his parents made him. His parents did not want him to return home. He did not want to take medications. Records indicated that diagnostically, he was a puzzle, although he appeared to have negative symptoms of schizophrenia. He was referred for neuropsychological testing. He had weekly phone sessions with his parents, but was sarcastic, and struggled to identify any treatment goals or make progress. He tended to downplay his symptoms, had poor participation in treatment, and ultimately requested to leave. He showed little insight, and refused medications. He was discharged with a diagnosis of cannabis and hallucinogen abuse, and rule out schizophreniform disorder. Per records, he was transferred to [facility], a residential treatment facility/working community in [place]. There is one note from 04/26/[address] David Guzman, an evaluation as affected probe and in the siblings study. He was reluctant to participate in some aspects of this study. At that time, he had recently been released from [facility], and was living with a maternal aunt and her 2 children in [place], and taking online classes. Due to his ongoing odd thinking that episodically rises past the threshold for psychosis together with negative symptoms and a failure to function, it was recommended that he work with a psychotherapist and abstain from substance use. The patient's mood and anxiety improved rapidly in the hospital, and although he reported possible auditory hallucinations of sounds, it was not clear if these were misinterpretations of stimuli in the environment or true hallucinations. He did feel that the risperidone was helpful in clarifying and organizing his thoughts, so it was continued. He submitted a 72 hour notice requesting to withdraw from treatment, and was not willing to rescind it, as he did not feel he needed ongoing inpatient treatment. He had a family meeting with his parents on 08/23/2017, and they stated that he has "shot down every opportunity for getting help." He had not been successful at multiple attempts to attend college, and would not follow through on getting a job, as he would get an interview but then make demands and place limitations on the hours he could work, which resulted in him not getting the job. They said he "only wants to work from 9-5 and make lots of money," but also complained that the world would not give him a chance. They said he has a pattern of "blaming others and society" for his lack of motivation and success. They deny that he ever been physically aggressive, but said that he was verbally abusive, calling his mother names and swearing on a regular basis, and was dismissive towards his parents suggestions. They said he had been consistently unwilling to remain in outpatient treatment, finding excuses to avoid therapy. They informed him that he would need to attend follow-up appointments and ceased disrespectful behavior towards his parents, or they would consider forcing him out of the home. The patient displayed defiant attitude towards his parents throughout the family session, but ultimately agreed to attend therapy and continue with medication. Parents confirmed that he does not have access to guns in the home. He used hydroxyzine 50 mg at bedtime for sleep in the hospital, and felt it was helpful, so requested a prescription at discharge. He was eating and sleeping well, completing his ADLs , although he was somewhat disheveled had adequate hygiene and grooming throughout his stay. Day of discharge assessment: Patient states that his mood is "better," and believes he has improved since admission. He denies thoughts of harming himself or anyone else, and denies hallucinations at this time. He feels his thinking is clear with medication, and feels more hopeful about the future. He denies side effects to medications. His sleep has improved, and he denies problems with appetite. He thinks it has been helpful to attend groups, as he feels he is "more in touch with other people's emotions and presents, before people just seemed like faces to me, I didn't feel their emotions." He remains willing to follow-up with outpatient providers, and hopes to be accepted to college, stating he is waiting to hear back about application for online classes. He admits that he has attempted college several times in the past and has not been successful, including attending [employer] twice and online courses through [facility] as well. He has not thought of an alternate plan in case he does not get into school, but was encouraged to consider what he might do, and says he might think about getting a job. Denies any safety concerns with discharge today, and remains unwilling to rescind his 72 hour notice. He says he wants to think staff are helping him while he was here. Thin white male appearing stated age. Casually dressed with limited but adequately hygiene and grooming. Calm and cooperative. Seated in NAD, with fair eye contact and no abnormal movements. Speech is normal rate, volume, and tone. Mood is "better," and affect is stable and wanted. Thoughts are linear, logical and goal directed. The patient denied suicidal and homicidal ideation and was able to review his safety plan. No paranoia, delusions, or hallucinations, and did not appear to be responding to internal stimuli. Cognition was grossly intact. Alert and oriented to person, place and time. Intelligence is consistent with level of education. Insight and and judgment are fair. Laboratory Test 08/21/17 19:30 08/21/17 20:21 08/23/17 07:20 Urine Color YELLOW Urine Appearance CLEAR Urine pH 5.5 Urine Specific [place] 1.012 Urine Protein NEG Urine Glucose (UA) NEG Urine Ketones NEG Urine Occult Blood NEG Urine Nitrite NEG Urine Bilirubin NEG Urine Urobilinogen NEG Urine Leukocyte Esterase NEG Urine Opiates Screen NEG Urine Methadone, Qualitative NEG Urine Barbiturates NEG Urine Phencyclidine (PCP) Level NEG Ur Amphetamine/Methamphetamine NEG MDMA (Ecstasy) Screen NEG Urine Benzodiazepines Screen NEG Urine Cocaine Metabolite NEG Urine Marijuana (THC) NEG White Blood Count 12.92 Red Blood Count 4.87 Hemoglobin 15.4 Hematocrit 42.6 Mean Corpuscular Volume 87.5 Mean Corpuscular Hemoglobin 31.6 Mean Corpuscular Hemoglobin Concent 36.2 RDW Standard Deviation 40.6 RDW Coefficient of Variation 12.6 Platelet Count 321 Mean Platelet Volume 10.6 Sodium Level 133 Potassium Level 3.6 Chloride Level 101 Carbon Dioxide Level 24 Anion Gap 8.0 Blood Urea Nitrogen 14 Creatinine 0.79 Est Creatinine Clear Calc Drug Dose 142.8 Estimated GFR () 145.7 Estimated GFR (Non- 125.7 BUN/Creatinine Ratio 17.5 Random Glucose 103 Calcium Level 9.1 Total Bilirubin 0.4 Direct Bilirubin 0.1 Aspartate Amino Transferase (AST) 11 Alanine Aminotransferase (ALT) 25 Alkaline Phosphatase 84 Total Protein 7.6 Albumin 4.2 Thyroid Stimulating Hormone (TSH) 0.861 Salicylates Level < 1.7 Acetaminophen Level < 2 Ethyl Alcohol mg/dL < 3.0 Fasting Glucose 92 Triglycerides Level 87 Cholesterol Level 160 HDL Cholesterol 59 LDL Cholesterol, Calculated 84 VLDL Cholesterol, Calculated 17 Cholesterol/HDL Ratio 2.7 25-Hydroxy Vitamin D Total 22.2 Total Time Total Time Spent (min): Greater than 30 minutes Total Time Included: examination of the patient, discharge planning, medication reconciliation Tobacco Cessation at Discharge Smoking Status: Never Smoker FDA approved Prescription: non-smoker Problem Qualifiers (1) Major depressive disorder, recurrent episode, severe: Psychotic features: with psychotic features Qualified Codes: F33.3 - Major depressive disorder, recurrent, severe with psychotic symptoms (2) Psychosis: Psychosis type: unspecified psychosis type Qualified Codes: F29 - Unspecified psychosis not due to a substance or known physiological condition
== END 2017-08-25 13:20 | disposition home or self-care (01) | DRG 885 ==
LOC: C.EDB 19:06 → C.MHU 22:34
PROVIDERS: ADMIT Psychiatry & Neurology Child & Adolescent Psychiatry; ATTEND Psychiatry & Neurology Psychiatry
DX: F33.2 Major depressive disorder, recurrent severe without psychotic features (principal); R45.851 Suicidal ideations; E55.9 Vitamin D deficiency, unspecified; F41.0 Panic disorder [episodic paroxysmal anxiety]; F29 Unspecified psychosis not due to a substance or known physiological condition